=== PATIENT | female | born 1960 | race Caucasian/White ===

== ENCOUNTER → 2020-10-08 12:02 | Outpatient (CLI) | payer BC, SELFPAY ==
--- NOTE | ~2020-10-08 | XR_ITS ---
EXAMINATION: XR chest 2V DATE: 10/08/2020 12:22 INDICATION: Cough TECHNIQUE: Frontal and lateral views of the chest are obtained COMPARISON: None available FINDINGS: The lungs are free of acute opacities. There is no pleural effusion or pneumothorax. The ca rdiomediastinal silhouette is normal. There is moderate thoracic spondylosis. IMPRESSION: 1. No acute cardiopulmonary abnormality. Reviewed, dictated and finalized at location A. J2EE DEVELOPER
== END ==
PROVIDERS: PCP Family Medicine; Visit Provider Physician Assistant
DX: R05 Cough (principal)
CPT/HCPCS: 71046

== ENCOUNTER 2020-10-30 14:59 | Outpatient (CLI) | payer BC, SELFPAY | END 2020-10-30 15:00 | disposition home or self-care (01) | LOC: ANHCOVIDVC 14:59 | PROVIDERS: PCP Family Medicine | DX: Z23 Encounter for immunization (principal) | CPT/HCPCS: 0001A; 91300 ==

== ENCOUNTER 2020-11-20 14:57 | Outpatient (CLI) | payer BC, SELFPAY | END 2020-11-20 14:58 | disposition home or self-care (01) | LOC: ANHCOVIDVC 14:58 | PROVIDERS: PCP Family Medicine | DX: Z23 Encounter for immunization (principal) | CPT/HCPCS: 0002A; 91300 ==

== ENCOUNTER 2021-09-24 10:41 | Emergency (ER) | payer BC, SELFPAY ==
--- NOTE | ~2021-09-24 | XR_ITS ---
EXAMINATION: XR chest 2V EXAM DATE: 09/24/2021 11:11 INDICATION: Cough, congestion x 2 wks. TECHNIQUE: Frontal and lateral projections of the chest obtained and reviewed. Comparison is made to prior examination from 10/08/2020. FINDINGS: The lungs are clear. There are no pleural effusions. The cardiomediastinal silhouette is within normal limits. There is no pneumothorax suspected. The bones and soft tissues are unremarkab le. There are cholecystectomy clips. IMPRESSION: No acute cardiopulmonary findings. Reviewed, dictated and finalized at location A. DEMURRAGE CLERK
--- NOTE | 2021-09-24 10:49 | ED.URI ---
HPI - URI/Sore Throat General Chief Complaint: Upper Respiratory Infection Stated Complaint: SINUS CONGESTION/COUGH/WHEEZING Time Seen by Provider: 09/24/21 10:52 Source: patient Mode of arrival: ambulatory Limitations: no limitations History of Present Illness HPI Narrative: 61-year-old female presented for complaint of sinus pressure and congestion worsening x1 week, stating I think it is in my chest now. Endorses productive cough of yellow sputum. Denies chest pain, shortness of breath, nausea, vomiting, fever or chills. She is taking [id number] cough and cold medications. She is fully vaccinated for Covid. MD elicited complaint: cough Related Data Allergies Allergy/AdvReac Type Severity Reaction Status Date / Time No Known Allergies Allergy Verified 09/24/21 10:54 Review of Systems Review of Systems: CONSTITUTIONAL: Endorses malaise, denies chills, sweats, fever. EYES: Denies visual changes, redness, or discharge. ENT: Reports rhinorrhea, congestion, sinus pain denies otalgia and sore throat. CARDIOVASCULAR: Denies chest pain, palpitations, or edema. RESPIRATORY: Reports cough, post nasal drainage. Denies dyspnea. GASTROINTESTINAL: Denies abdominal pain, nausea, vomiting, diarrhea SKIN: Denies rash or itching. MUSCULOSKELETAL: denies myalgia. NEUROLOGIC: Denies headache. [facility] Past Medical History Medical History Basal cell adenoma GERD (gastroesophageal reflux disease) History of skin cancer Melanoma Surgical History Surgical History History of cholecystectomy Family History Family History Father Family history of diabetes mellitus in first degree relative Other Family history of cardiovascular disease Family history of malignant neoplasm Hypertension Social History Social History Social History: Living at home with friend, that she cares for. Smoking status: Never smoker Alcohol intake: never Substance use: never Substance use type: does not use Gender identity (if verbalized by the patient): Female Exam Narrative: GENERAL: Ill-appearing, nontoxic no acute distress. HEAD: Normocephalic EYES: PERRLA, conjunctivae clear ENT: Mucous membranes moist. TM pearly barrera with dull light reflex bilaterally; no tragal tenderness. Oropharynx erythematous without lesions. Tonsils not enlarged and without exudate, no drooling, no hoarseness, no trismus, uvula midline. NECK: Supple. No lymphadenopathy CHEST: Lungs diminished with exp wheezing to bilat bases. No respiratory distress, speaks in full sentences. HEART: Regular rate and rhythm. No murmur heard. SKIN: Warm, dry, no rash. NEURO: Alert and oriented x3. PSYCH: Normal mood and affect Course Course Emergency Course: Patient is aware of diagnosis, understands and agrees to treatment plan. Anticipatory guidance given. Patient agrees to follow-up as directed and is aware of reasons to seek care at the emergency department. Portions of this record may have been created with voice recognition software Level of Care: Express Care Visit Vital Signs Vital signs: Vital Signs Temperature 97.7 F 09/24/21 10:51 Pulse Rate 93 09/24/21 10:51 Respiratory Rate 12 09/24/21 10:51 Blood Pressure 141/91 H 09/24/21 10:51 Pulse Oximetry 100 09/24/21 10:51 Temperature 97.7 F 09/24/21 10:51 Pulse Rate 93 09/24/21 10:51 Respiratory Rate 12 09/24/21 10:51 Blood Pressure 141/91 H 09/24/21 10:51 Pulse Oximetry 100 09/24/21 10:51 reviewed MDM - URI/Sore Throat Differential Diagnosis Differential diagnosis: Likely upper respiratory infection, sinusitis and viral infection Imaging Data Attestation: I personally reviewed and interpreted this imaging study as follows: My impression: No a
[2021-09-24 10:51] VITALS: BP 141/91; PULSE 93; RESP 12; TEMP 36.5; O2SAT 100
== END 2021-09-24 11:32 | disposition home or self-care (01) ==
PROVIDERS: Emergency Provider Nurse Practitioner Family; PCP Family Medicine
DX: J06.9 Acute upper respiratory infection, unspecified (principal); K21.9 Gastro-esophageal reflux disease without esophagitis; Z85.820 Personal history of malignant melanoma of skin
CPT/HCPCS: 71046; 99213; G0463

== ENCOUNTER 2023-09-22 12:11 | Outpatient (RCR) | payer BC, SELFPAY ==
[2023-09-22 12:36] LABS: Alanine Aminotransferase 16 U/L (6-35); Albumin Level 4.4 g/dL (3.5-5.1); Alkaline Phosphatase 76 U/L (38-126); Anion Gap 5 mmol/L (8-16); Aspartate Amino Transferase 29 U/L (14-36); Bilirubin,Total 0.8 mg/dL (0.2-1.3); Blood Urea Nitrogen 11 mg/dL (7-17); Calcium 9.5 mg/dL (8.4-10.2); Carbon Dioxide 33 mmol/L (22-30); Chloride 102 mmol/L (98-107); Cholesterol 242 mg/dL (0-200); Estimated Glomerular Filt Rate > 60; Glucose 103 mg/dL (65-110); HDL Direct 105 mg/dL; Potassium 3.9 mmol/L (3.4-5.0); Sodium 140 mmol/L (137-145); Triglycerides 89 mg/dL (<150)
[2023-09-22 12:47] LABS: LDL Cholesterol Direct 106 mg/dL
[2023-09-26 23:59] LABS: Vitamin D 1,25 (OH)2 Total 44 pg/mL (18-72); Vitamin D2 1,25 (OH)2 27 pg/mL; Vitamin D3 1,25 (OH)2 17 pg/mL
== END 2023-12-21 23:59 | disposition home or self-care (01) ==
LOC: ANHLAB 12:11
PROVIDERS: PCP Family Medicine; Visit Provider Physician Assistant
DX: Z13.1 Encounter for screening for diabetes mellitus (principal); Z13.220 Encounter for screening for lipoid disorders; E55.9 Vitamin D deficiency, unspecified
CPT/HCPCS: 36415; 80053; 80061; 82652